=== PATIENT | male | born 1985 | race Caucasian/White ===

== ENCOUNTER 2017-08-08 16:43 | Emergency (ER) | payer OTHER ==
[~2017-08-08] VITALS: Ht 175.3 cm; Wt 104.3 kg
[2017-08-08] MEDS ORDERED: AUGMENTIN 875-1 EACH PO (17:02)
[2017-08-08 17:07] VITALS: BP 128/77
[2017-08-08] MEDS ORDERED: FLONASE 0.05%50 MCG NASAL (17:14)
== END 2017-08-08 17:51 | disposition home or self-care (01) ==
LOC: ER 16:43
DX: S61.250A Open bite of right index finger without damage to nail, initial encounter (principal); Z88.8 Allergy status to other drugs, medicaments and biological substances; W54.0XXA Bitten by dog, initial encounter; Y92.89 Other specified places as the place of occurrence of the external cause; Y93.89 Activity, other specified; Y99.8 Other external cause status